=== PATIENT | female | born 1955 | race Caucasian/White ===

== ENCOUNTER 2022-01-22 08:39 | Emergency (ER) | payer OTHER, SELFPAY ==
[2022-01-22 08:40] VITALS: BP 154/90; PULSE 50; RESP 14; TEMP 36.6; O2SAT 97; BMI 24.8
--- NOTE | 2022-01-22 09:12 | CT_ITS ---
STUDY: CT ABDOMEN AND PELVIS WITH CONTRAST REASON FOR EXAM: Female, 66 years old. SUPRAPUBIC PAIN X 10 DAYS, OVARIAN CA-HYSTER RADIATION DOSAGE (If Supplied By Facility): CTDIvol = ( 11.55 ) mGy, DLP = ( 479.75 ) mGycm TECHNIQUE: Transaxial images were obtained from the dome of the diaphragm to the symphysis pubis without oral contrast. IV 100mL Isovue-300 was administered. Sagittal and coronal images were reconstructed. Individualized dose optimization techniques were used for this CT. COMPARISON: None. FINDINGS: The visualized lung bases are unremarkable. Normal liver. No intrahepatic biliary duct dilatation or liver mass. Normal gallbladder and extrahepatic biliary system. Normal spleen. Normal pancreas. Normal bilateral adrenal glands. Normal right kidney. Normal left kidney. No hydronephrosis or renal masses. No large stones. Normal visualized stomach. Normal small intestine. There are multiple colonic diverticula consistent with diverticulosis. No bowel dilatation or obstruction. No free air or free fluid. Multiple surgical clips are present across the anterior aspect of the intra-abdominal cavity. There is non-visualization of the appendix. Normal abdominal aorta. Normal inferior vena cava. Normal retroperitoneum. Normal urinary bladder. Normal abdominal wall. Normal osseous structures. CT/Abdomen/Pelvis W IV Cont ONLY IMPRESSION: 1. Colonic diverticulosis. No visualized acute process Electronically Signed: Carlos Somers MD at 10:19 EDT ,
[2022-01-22 09:14] LABS: Bacteria 0 SEEN /hpf (None Seen); Mucous, Urine 0 SEEN /hpf (<or=2+); Red Blood Cells-Urine 0 SEEN /hpf (0-5); Squamous Epithelial Cells - UA 0 SEEN /hpf (5-10); White Blood Cells 0 SEEN /hpf (0-5)
--- NOTE | 2022-01-22 09:14 | ED.VIS.GI ---
HPI HPI - GI History of Present Illness Chief Complaint: Abd Pain Informant: patient Abdominal Pain/Flank Pain Onset: Days Context: Gradual Onset Quality: Aching Location: - (Suprapubic) Current Severity: Mild Maximum Severity: Mild Worsened by: Nothing Relieved by: Nothing Nausea/Vomiting/Emesis GI Symptom: Negative for Nausea or Vomiting Diarrhea/Melena/Hematochezia GI Symptom: Negative for Diarrhea Associated Symptoms Associated Symptoms: Negative for Dysuria, Frequency or Hematuria Narrative Narrative: 66-year-old female history of prior ovarian cancer with a hysterectomy years ago. States that she has had suprapubic abdominal pain for about the last 10 days and now radiates into her back. No fall injury or trauma. No fever, chills or diarrhea nor any constipation. No dysuria. No weight change. She has never had anything like this before. Prior similar symptoms: No Recent Illness/Hospitalization: No PFSH PFSH Medical History Hyperlipidemia Home Medications atorvastatin 80 mg tablet (Lipitor) 80 mg PO QHS 01/03/17 [History Last Taken Unknown] ciprofloxacin HCl 500 mg tablet 500 mg PO BID ##10 01/03/17 [Rx Last Taken Unknown] sertraline 50 mg tablet (Zoloft) 50 mg PO DAILY 01/03/17 [History Last Taken Unknown] Allergy/AdvReac Type Severity Reaction Status Date / Time Penicillins Allergy Hives Verified 01/22/22 08:40 Surgical History History of hysterectomy Social History Smoking Status: Never smoker ROS ROS ED ROS Narrative Abdominal pain. Review of Systems ROS Unobtainable: Denies due to encephalopathy Constitutional Constitutional ED: Denies chills ENT ENT ED: Denies ear pain Respiratory/Chest Respiratory/Chest: Denies cough Gastrointestinal Gastrointestinal: Reports abdominal pain Genitourinary Genitourinary ED: Denies dysuria Musculoskeletal Musculoskeletal: Denies arthralgias Integumentary Denies abscess Neurologic Neurologic: Denies headache(s) Psychiatric Psychiatric: Denies anxiety Endocrine Endocrinology: Denies polydipsia Hematologic/Lymphatic Hematologic/Lymphatic: Denies easy bleeding Allergic/Immunologic Allergic/Immunologic ED: Denies mouth swelling EXAM Physical Exam Narrative Exam Narrative: 66-year-old female no acute distress vital signs stable afebrile. Exam benign except abdominal exam mild suprapubic discomfort. No rebound guarding rigidity. No hernia or mass. No obstruction. Normal bowel sounds. Right upper and lower quadrants are unremarkable. Lungs are clear. Heart regular rhythm. Back exam normal. Const Vital Signs: 01/22/22 08:40 Temperature 98 F Temperature Source Temporal Pulse Rate 50 L Respiratory Rate 14 Blood Pressure 154/90 H Blood Pressure Mean 111 Pulse Ox 97 Oxygen Delivery Method Room Air Positive well nourished and well developed; Negative for obese, cachectic, contractures or unkempt General Appearance ED: well developed; Negative for unkempt, cachectic or contractures Nutritional Appearance: Negative for cachectic or obese HEENT Reports moist mucous membranes normocephalic and atraumatic; Negative for trauma or tenderness Eyes PERRL and EOMs intact bilaterally General Eye ED: Negative for pale conjunctiva or scleral icterus Neck no lymphadenopathy, supple and no JVD General: Negative for tenderness Lymph Lymphatic: Negative for other Resp normal respiratory effort and clear to auscultation bilaterally Effort and Inspection: Negative for respiratory distress, retractions or pain with movement Auscultation: Negative for rales, rhonchi or wheezes Cardio regular rate, regular rhythm, S1 normal heart sound and S2 normal heart sound Rate: Negative for bradycardia Rhythm: Negative for abnormal rhythm GI non-distended and no masses; Negative for non-tender Inspection: Negative for abdominal distention Auscultation: normoactive bowel sounds; Negative for hyperactive bowel sounds Palpation: soft and tender; Negative for guarding, rigid, hepatomegaly, splenomegaly or hernia Back/Spine no CVA tenderness Extremity full ROM General Extremety ED: Negative for edema or tenderness General Extremity: Negative for edema Psych Appearance: Negative for unkempt Skin no wounds General Skin Exam: Negative for jaundice Lesions: no lesions Rashes: no rashes Trauma: Negative for abrasion MDM MDM MDM Narrative Medical decision making narrative: 66-year-old with suprapubic abdominal pain. Exam benign. CAT scan and labs are pending. She does not anything for pain. She is having no nausea. Repeat exam patient doing well at 10:55 AM. I went over all test results with her and her . We have no specific cause for her pain. She will continue her Tylenol and ibuprofen and follow-up with her primary care physician. Lab Data Attestation: I reviewed the patient's lab results. Lab results narrative: CBC unremarkable. White count of 5.8. H&H 14 and 42. Electrolytes unremarkable gap of 5. Normal BUN and creatinine. Glucose 93. UA negative. No whites, reds nor bacteria nor nitrites. Labs: Laboratory Results - last 24 hr 01/22/22 01/22/22 01/22/22 09:00 09:00 09:00 WBC 5.8 RBC 4.81 Hgb 14.0 Hct 42.2 MCV 87.7 MCH 29.1 MCHC 33.2 RDW Std Deviation 40.6 RDW Coeff of [place] 12.4 Plt Count 219 MPV 9.8 Immature Gran % (Auto) 0.300 Neut % (Auto) 55.9 Lymph % (Auto) 31.4 [place] % (Auto) 7.9 Eos % (Auto) 4.3 Baso % (Auto) 0.2 Absolute Neuts (auto) 3.3 Absolute Lymphs (auto) 1.83 Nucleated RBC % 0 Sodium 142 Potassium 3.8 Chloride 111 H Carbon Dioxide 26.0 Anion Gap 5 BUN 12 Creatinine 0.88 Estim Creat Clear Calc 51.08 Est GFR (MDRD) Af Amer 83 Est GFR (MDRD) Non-Af 69 BUN/Creatinine Ratio 13.7 Glucose 93 Calcium 9.3 Urine Color Yellow Urine Clarity Clear Urine pH 6.0 Ur Specific [place] 1.010 Urine Protein Negative Urine Glucose (UA) Normal Urine Ketones Negative Urine Occult Blood Negative Urine Nitrite Negative Urine Bilirubin Negative Urine Urobilinogen Normal Ur Leukocyte Esterase Negative Urine RBC 0 SEEN Urine WBC 0 SEEN Ur Squamous Epith Cells 0 SEEN Urine Bacteria 0 SEEN Urine Mucus 0 SEEN Radiography Diagnostic Testing: Clinical Impression(s) from Imaging Studies Abdomen/Pelvis CT 01/22/22 09:12 IMPRESSION: 1. Colonic diverticulosis. No visualized acute process Electronically Signed: Carlos Somers MD at 10:19 EDT , Discharge Plan Triage Chief Complaint: Abd Pain ED Provider: Douglas Mendosa Dx/Rx/DC Orders Clinical Impression: Abdominal pain Instructions: ED Abdominal Pain Unkn Cause Fem Prescriptions: No Action atorvastatin [Lipitor] 80 MG tablet 80 mg PO QHS sertraline [Zoloft] 50 MG tablet 50 mg PO DAILY ciprofloxacin HCl 500 MG tablet 500 mg PO BID Qty: 10 0RF Primary Care Provider: Charisma Jiménez Referrals: Charisma Jiménez MD [Primary Care Provider] - 1 Week if not improving Activity Restrictions/Additional Instructions: Your labs and CAT scan today were normal. If not improving follow-up with your doctor. Continue ibuprofen or Tylenol for pain. Disposition Disposition: Home, Self Care
[2022-01-22 09:21] LABS: Color, Urine Yellow (Yellow); Glucose, Dipstick Normal (Normal); Ketone-Dipstick Negative (Negative); Leukocyte Esterase-Dipstick Negative /ul (Negative); Nitrite-Dipstick Negative (Negative); Occult Blood-Urine Negative /ul (Negative); Protein-Dipstick Negative (Negative); Urine Bilirubin Dipstick Negative (Negative); Urine Clarity Clear (Clear); Urine Urobilinogen Normal (Normal)
[2022-01-22 09:26] LABS: Absolute Lymphocyte Count 1.83 X10^3/uL (0.83-4.51); Absolute Neutrophil Count 3.3 X10^3/uL (2.0-7.7); Basophil# 0.01 X10^3/uL; Basophil% 0.2 % (0-1); Eosinophil# 0.25 X10^3/uL; Eosinophils% 4.3 % (0-5); Hematocrit 42.2 % (37-47); Lymphocyte # 1.83 X10^3/ul (0.83-4.51); Lymphocyte % 31.4 % (19-41); Mean Corp Hgb Conc 33.2 g/dL (32-36); Mean Corpuscular Hgb 29.1 pg (27.0-32.0); Mean Corpuscular Volume 87.7 fL (81-99); Mean Platelet Vol. 9.8 fl (6.2-12.0); Monocyte# 0.46 X10^3/uL; Monocyte% 7.9 % (0-10); NRBC Flagged by Analyzer 0 % (0-5); Neutrophil # 3.25 X10^3/uL (2.7-7.7); Neutrophil % 55.9 % (47-70); Platelet Count 219 K/mm3 (150-450); RBC Distribution Width CV 12.4 % (11.6-14.6); RBC Distribution Width SD 40.6 fl (35.1-43.9); Red Blood Count 4.81 M/mm3 (4.2-5.4); White Blood Count 5.8 K/mm3 (4.4-11.0)
[2022-01-22 09:34] LABS: Anion Gap 5 (5-15); BUN 12 mg/dL (7-18); BUN/Creat Ratio 13.7 RATIO (10-20); Calcium,Total 9.3 mg/dL (8.5-10.1); Chloride 111 mmol/L (98-107); Creatinine, Serum 0.88 mg/dL (0.55-1.02); EST Glomerular Filtration Rate 69 mL/min (>60); Est Glom Filt Rate - Afr Amer 83 mL/min (>60); Estimated Creatinine Clearance 51.08 ml/min; Glucose 93 mg/dL (74-106); Potassium 3.8 mmol/L (3.5-5.1); Sodium Level 142 mmol/L (136-145)
[2022-01-22 11:08] VITALS: BP 124/77; PULSE 68; RESP 14; O2SAT 98
== END 2022-01-22 11:09 | disposition home or self-care (01) ==
PROVIDERS: Emergency Provider Emergency Medicine; PCP Internal Medicine; Visit Provider Emergency Medicine
DX: R10.9 Unspecified abdominal pain (principal); E78.5 Hyperlipidemia, unspecified; Z90.710 Acquired absence of both cervix and uterus; Z79.899 Other long term (current) drug therapy
CPT/HCPCS: 74177; 80048; 81001; 85025; 99283; Q9967; A4216